=== PATIENT | female | born 1955 | race Caucasian/White ===

== ENCOUNTER → 2025-08-14 13:57 | Outpatient (REF) | payer OTHER, SELFPAY | LOC: DHSLP 13:57 | PROVIDERS: ATTENDING PHYSICIAN Internal Medicine; FAMILY PHYSICIAN Family Medicine | DX: G47.19 Other hypersomnia (principal); R06.83 Snoring | CPT/HCPCS: 95800 ==

== ENCOUNTER → 2025-10-05 14:03 | Outpatient (REF) | payer OTHER, SELFPAY | LOC: DHSLP 14:03 | PROVIDERS: ATTENDING PHYSICIAN Internal Medicine; FAMILY PHYSICIAN Family Medicine | DX: G47.33 Obstructive sleep apnea (adult) (pediatric) (principal); R09.02 Hypoxemia | CPT/HCPCS: 95800 ==